=== PATIENT | male | born 1960 | race Caucasian/White ===

== ENCOUNTER 2016-04-02 13:08 | Emergency (ER) | payer OTHER ==
[~2016-04-02] VITALS: Ht 175.3 cm; Wt 100.0 kg
[~2016-04-02 13:08] MED LIST: DOCU1CAP39 PO; DOXA1 PO; HYDR10SO PO; THERM PO; WHEELCHAIR RENTAL RA; Z.0.COMMODE-3:1; Z.0.CPM; Z.0.WALKERFRONT; ZEGE20CA PO
[2016-04-02 13:10] VITALS: BP 126/91; PULSE 87; RESP 14; TEMP 97.8; O2SAT 98
[2016-04-02] MEDS ORDERED: DOXA1TAB35 PO (13:34)
[2016-04-02] MEDS ORDERED: OMEP40CA2 PO (13:34)
--- NOTE | 2016-04-02 14:44 | PD ---
HPI Chief Complaint: Musculoskeletal Complaint Time Seen by Provider: 14:40 Travel History International Travel<30 days: No Contact w/Intl Traveler<30days: No Traveled to known affect area: No History of Present Illness HPI 55-year-old male that presents to the ED for evaluation of pain to the left calf. Per patient he was seen at [facility] yesterday had an ultrasound that showed a hematoma that had burst and possible injury to the muscle. Patient was told to follow with his orthopedic doctor. Patient did call his orthopedic doctor today who recommended that he comes here to get evaluated. His orthopedic doctor is Dr. Noe. Dr. Noe wanted us to contact him for possible MRI. Patient denies any injury to the left calf other than an injury that he had on of last week where he hit his right hip on a bolt. Per patient he had pain on the calf at all during that time but for the past 3-4 days his been having pain in the calf with no obvious injury to he can think of. He does have both knee replacements. He denies any chest pain or shortness of breath. Per patient he had an ultrasound done yesterday which only show a hematoma to have burst. He denies any blood thinners. States that the pain is significant only with walking but does bother him like an ache even just laying. Per patient the pain gets to be severe 7 out of 10 but currently 3 out of 10. No numbness, tilling, weakness. PFSH Past Medical History Arthritis: Yes Autoimmune Disease: No Anxiety: No Depression: No Cancer: No Cardiovascular Problems: No Diabetes: No Endocrine: No GERD: Yes Glaucoma: No Genitourinary: No Hepatitis: No Hiatal Hernia: No Hypertension: No Immune Disorder: No Kidney Stones: No Musculoskeletal: Yes (Arthritis) Neurologic: No Psychiatric: No Reproductive: No Respiratory: No Renal Failure: No Thyroid Disease: No Ulcer: No Past Surgical History Abdominal Surgery: No AICD: No Arteriovenous Shunt: No Body Medical Devices: 2 PINS RIGHT SHOULDER Cardiac Surgery: No Ear Surgery: No Endocrine Surgery: No Eye Surgery: No Genitourinary Surgery: No Gynecologic Surgery: No Insulin Pump: No Joint Replacement: Yes (R shoulder Bilateral knees) Oral Surgery: No Pacemaker: No Thoracic Surgery: No Social History Alcohol Use: Yes (1 CASE OF BEER A WEEK OR LESS) Tobacco Use: No Substance Use: No Allergies-Medications (Allergen,Severity, Reaction): Coded Allergies: No Known Allergies (Verified , 04/02/16) Reported Meds & Prescriptions Reported Meds & Active Scripts Active Reported Omeprazole 40 Mg Cap 40 Mg PO DAILY Doxazosin (Doxazosin Mesylate) 2 Mg Tab 2 Mg PO DAILY Review of Systems Except as stated in HPI: all other systems reviewed are Neg Physical Exam Narrative GENERAL: SKIN: Warm and dry. HEAD: Atraumatic. Normocephalic. EYES: Pupils equal and round. No scleral icterus. No injection or drainage. ENT: No nasal bleeding or discharge. Mucous membranes pink and moist. NECK: Trachea midline. No JVD. CARDIOVASCULAR: Regular rate and rhythm. RESPIRATORY: No accessory muscle use. Clear to auscultation. Breath sounds equal bilaterally. GASTROINTESTINAL: Abdomen soft, non-tender, nondistended. Hepatic and splenic margins not palpable. MUSCULOSKELETAL: Extremities without clubbing, cyanosis, or edema. No obvious deformities. Patient has full range of motion of the lower extremities bilaterally. Full range of motion of the ankle. 2+ pulses bilaterally. Patient does have reproducible pain on the left some bruising noted. Pain with flexion and extension of the knee but more noted with dorsiflexion and plantarflexion. No obvious bony deformity noted. Achilles tendon appears to be intact. NEUROLOGICAL: Awake and alert. No obvious cranial nerve deficits. Motor grossly within normal limits. Five out of 5 muscle strength in the arms and legs. Normal speech. PSYCHIATRIC: Appropriate mood and affect; insight and judgment normal. Data Data Last Documented VS Vital Signs Date Time Temp Pulse Resp B/P Pulse Ox O2 Delivery O2 Flow Rate FiO2 04/02/16 13:10 97.8 87 14 126/91 98 Orders Complete Blood Count With Diff (04/02/16 13:56) Basic Metabolic Panel (Bmp) (04/02/16 13:56) Iv Access Insert/Monitor (04/02/16 13:56) Mri Lower Leg W/O Contrast (04/02/16 ) Labs Laboratory Tests Test 04/02/16 14:30 White Blood Count 9.5 TH/MM3 Red Blood Count 4.22 MIL/MM3 Hemoglobin 13.3 GM/DL Hematocrit 38.4 % Mean Corpuscular Volume 90.9 FL Mean Corpuscular Hemoglobin 31.5 PG Mean Corpuscular Hemoglobin 34.7 % Concent Red Cell Distribution Width 13.8 % Platelet Count 276 TH/MM3 Mean Platelet Volume 7.9 FL Neutrophils (%) (Auto) 77.0 % Lymphocytes (%) (Auto) 16.2 % Monocytes (%) (Auto) 5.2 % Eosinophils (%) (Auto) 1.0 % Basophils (%) (Auto) 0.6 % Neutrophils # (Auto) 7.3 TH/MM3 Lymphocytes # (Auto) 1.5 TH/MM3 Monocytes # (Auto) 0.5 TH/MM3 Eosinophils # (Auto) 0.1 TH/MM3 Basophils # (Auto) 0.1 TH/MM3 CBC Comment DIFF FINAL Differential Comment Sodium Level 141 MEQ/L Potassium Level 3.9 MEQ/L Chloride Level 106 MEQ/L Carbon Dioxide Level 29.7 MEQ/L Anion Gap 5 MEQ/L Blood Urea Nitrogen 16 MG/DL Creatinine 0.94 MG/DL Estimat Glomerular Filtration 83 ML/MIN Rate Random Glucose 100 MG/DL Calcium Level 8.9 MG/DL MDM Medical Decision Making Medical Screen Exam Complete: Yes Emergency Medical Condition: Yes Medical Record Reviewed: Yes Interpretation(s) Last Impressions Lower Extremity MRI 04/02/16 0000 Signed Impressions: Service Date/Time: Saturday, April 02, 2016 17:07 - CONCLUSION: 1. Hematoma within the fascia of the medial right calf with mass effect on the gastrocnemius. Measurements given above. Patient would be at risk for compartment syndrome if this increases in size. Michi Hall MD Differential Diagnosis Gastrocnemius tear versus hematoma versus abscess versus muscle tear Narrative Course 55-year-old male that presents to the ED for evaluation of left leg injury. Patient was properly examined and was found to have signs and symptoms consistent with appears to be likely gastrocnemius tear with hematoma. Unclear as to how he did it. I spoke personally with Dr. Noe over the phone who recommends MRI and if MRI is reasonable patient can follow-up outpatient. If not to call him back. MRI was ordered. IV was started. I offer patient pain medication but he declined at this time as he does want to drive himself home. MRI and labs were essentially unremarkable except for severe hematoma. Case was discussed with on-call physician for Dr. Kusum bueno who recommends follow-up in his office and watch for signs of compartment syndrome. Elevate ice, pain medication as needed. Patient was told this and agrees with plan. At this time I do not believe patient has compartment syndrome as patient symptoms seem to be benign. He does not have any numbness, tilling, weakness. Patient was told as to what to look for in case of compartment syndrome. He agrees and understands. He understands reasons to come back. See ED worsening symptoms. Patient was given prescription for Lortab and ibuprofen. Diagnosis Primary Impression: Hematoma Patient Instructions: General Instructions Additional Instructions: Take medications as prescribed. Follow-up with PCP. See ED for any worsening symptoms. Do not drink or drive while taking pain medication. Apply ice or heat as needed for pain Med/Other Pt SpecificInfo: Prescription(s) given Scripts Ibuprofen 800 Mg [id number] Mg PO Q8H PRN (Pain/Inflammation) #30 TAB Prov:Megan Bradley MD 04/02/16 Hydrocodone-Acetaminophen (Lortab)5-325 Mg Tab1 Tab PO Q6H PRN (PAIN) #20 TAB Prov:Megan Bradley MD 04/02/16 Disposition: 01 DISCHARGE HOME Condition: Stable Morgan Patterson Apr 02, 2016 14:44
[2016-04-02 15:00] LABS: AUTOMATED NEUTROPHIL # 7.3 TH/MM3 (1.8-7.7); BASOPHIL # 0.1 TH/MM3 (0-0.2); BASOPHIL % 0.6 % (0.0-2.0); EOSINOPHIL # 0.1 TH/MM3 (0-0.4); HEMATOCRIT 38.4 % (39.0-51.0); HEMO FLAGS DIFF FINAL; LYMPH % 16.2 % (9.0-44.0); LYMPHOCYTE # 1.5 TH/MM3 (1.0-4.8); MEAN CELL VOLUME 90.9 FL (80.0-100.0); MEAN CORPUSCULAR HEMOGLOBIN 31.5 PG (27.0-34.0); MEAN CORPUSCULAR HGB CONC 34.7 % (32.0-36.0); MONO % 5.2 % (0.0-8.0); PLATELET COUNT 276 TH/MM3 (150-450); RED BLOOD COUNT 4.22 MIL/MM3 (4.50-5.90); RED CELL DISTRIBUTION WIDTH 13.8 % (11.6-17.2); WHITE BLOOD COUNT 9.5 TH/MM3 (4.0-11.0)
[2016-04-02 15:22] LABS: BICARBONATE 29.7 MEQ/L (21.0-32.0); POTASSIUM 3.9 MEQ/L (3.5-5.1)
--- NOTE | 2016-04-02 18:02 | RADRPT ---
EXAM DATE/TIME: 04/02/2016 17:07 CORRECTION Corrected on: April 09, 2016; [facility] COMPARISON: No previous studies available for comparison. INDICATIONS : Hematoma left calf. MEDICAL HISTORY : None. SURGICAL HISTORY : Total knee replacement, left. Total knee replacement, right. ENCOUNTER: Initial ACUITY: 2 day PAIN SCORE: 4/10 LOCATION: Left leg TECHNIQUE: Multiplanar multisequence MRI examination of the lower leg was performed without contrast. FINDINGS: MR findings are characteristic of a hematoma in the medial left calf measuring up to 18.5 cm in lengt h, 3.9 cm in transverse diameter and 6.7 cm in AP diameter. The hematoma is within the fascial layer of the medial gastrocnemius. Patient would be at risk for a compartment syndrome with the hematoma de creases in size. There is overlying subcutaneous edema. CONCLUSION: 1. Hematoma within the fascia of the medial left calf with mass effect on the gastrocnemius. Measurem ents given above. Patient would be at risk for compartment syndrome if this increases in size. Michi Hall MD on April 02, 2016 at 17:56 Board Certified Radiologist. This report was verified electronically. Long Olea MD on April 09, 2016 at 8:20 Board Certified Radiologist. This report was verified electronically.
[2016-04-02] MEDS ORDERED: IBUP800T23 PO (18:24)
[2016-04-02] MEDS ORDERED: HYDR-3533 PO (18:24)
== END 2016-04-02 18:38 | disposition home or self-care (01) ==
LOC: NEPB 13:08 → NETRI 18:38
DX: S80.12XA Contusion of left lower leg, initial encounter (principal); X58.XXXA Exposure to other specified factors, initial encounter
CPT/HCPCS: 73718; 80048; 85025